=== PATIENT | female | born 1990 | race African-American/Black ===

== ENCOUNTER → 2016-08-17 | Day surgery (SDC) | payer OTHER ==
[~2016-08-17] MED LIST: NO MEDICATIONS
--- NOTE | ~2016-08-17 | OR ---
Unit #: [id number] #: [id number] Patient: JHON ROGERS [id number] [address] [address] [id number] O MR#: [id number] NAME: JHON ROGERS ROOM: Date of Procedure: 08/17/2016 Admission Date: 08/17/2016 Surgeon: Hang Ray M.D. : 1990 Attending Physician: Hang Ray M.D. OPERATIVE REPORT PROCEDURE PERFORMED Upper endoscopy with biopsies. INDICATIONS FOR PROCEDURE The patient with significant epigastric pain and weight loss, undergoing evaluation with upper endoscopy. MEDICATIONS Monitored anesthesia. POSTOPERATIVE FINDINGS 1. Small hiatal hernia. 2. Mild gastritis, biopsies taken. 3. Biopsies taken in the descending duodenum looking for celiac disease. PLAN 1. Continue with current treatment. 2. Follow up on pathology report. DESCRIPTION OF PROCEDURE The patient was explained of the procedure, risks, and benefits along with risks and benefits of anesthesia. She was brought to the endoscopy room. Propofol anesthesia was given. Bite block was placed. The scope was passed down the mouth into the esophagus, stomach, duodenum, and distal duodenum. Findings as described. Biopsies taken. Gently, I pulled the scope out of the patient's mouth. She tolerated it well. Dictated by... Porsche Mas/ag TD: 08/18/2016 01:09 JOB #: [id number] Unit #: [id number] #: [id number] Patient: JHON ROGERS OPERATIVE REPORT Page 1 of 1 X Hang Ray MD X PROCEDURE OPERATIVE NOTE
[2016-08-17 14:26] LABS: BASOPHIL% 0.3 % (0-2.5); DIFF IND NO; EOSINOPHIL# 0.1 X10e3 (0-0.7); EOSINOPHIL% 2.1 % (0.0-7.0); HEMOGLOBIN 14.8 gm/dL (12.0-16.0); LYMPHOCYTE# 0.6 X10e3 (1.0-3.5); LYMPHOCYTE% 10.6 % (17.0-45.0); MEAN CELL VOLUME 91.5 FL (83-96); MEAN CORPUSCULAR HEMOGLOBIN 30.2 PG (28-34); MEAN PLATELET VOLUME 7.9 FL (6.5-11.5); MONOCYTE# 0.6 X10e3 (0-1.0); MONOCYTE% 10.7 % (3.0-12.0); NEUTROPHIL# 4.4 X10e3 (1.5-7.1); NEUTROPHIL% 76.3 % (40-75); PLATELET COUNT 221 X10e3 (140-420); RED BLOOD COUNT 4.91 X10e (3.90-5.30); RED CELL DISTRIBUTION WIDTH 12.9 % (11.0-15.5); WHITE BLOOD COUNT 5.7 X10e3 (4.0-10.5)
[2016-08-17 14:47] LABS: BILIRUBIN,TOTAL 0.8 mg/dL (0.2-2.0); BUN/CREATININE RATIO 11.25; CREATININE SERUM 0.8 mg/dL (0.6-1.4); GLOM FILT RATE Estimated 119.7 mL/min (>60); POTASSIUM 3.9 mmol/L (3.5-5.1); PROTEIN TOTAL SERUM 7.3 g/dL (6.0-8.3)
[2016-08-21 20:19] LABS: GLIADIN IGA AB 14 Units (<20); GLIADIN IGG AB 5 Units (<20); RETICULIN IGA SCREEN W/REFLEX Negative (Negative); TISSUE TRANSGLUTAMINASE IGA AB 1 U/mL (<4)
== END | disposition home or self-care (01) ==
LOC: COPS 10:57 → EDBD 10:57 → COPS 15:30
PROVIDERS: Internal Medicine
DX: K29.80 Duodenitis without bleeding (principal); K29.50 Unspecified chronic gastritis without bleeding; K44.9 Diaphragmatic hernia without obstruction or gangrene; F17.210 Nicotine dependence, cigarettes, uncomplicated; Z87.11 Personal history of peptic ulcer disease; Z88.8 Allergy status to other drugs, medicaments and biological substances
CPT/HCPCS: 80053; 83516; 84703; 85025; 86255; 88305; 88312; J2250